=== PATIENT | female | born 1975 | race Caucasian/White ===

== ENCOUNTER 2016-09-25 23:28 | Emergency (ER) | payer BC, OTHER ==
[2016-09-25 23:38] VITALS: BP 146/80; PULSE 91; TEMP 98; BMI 24.5
== END 2016-09-25 23:53 | disposition left against medical advice (07) ==
LOC: JER 23:28
DX: Z53.21 Procedure and treatment not carried out due to patient leaving prior to being seen by health care provider (principal)
CPT/HCPCS: 99281-25